=== PATIENT | male | born 1980 | race Hispanic/Latino ===

== ENCOUNTER → 2017-11-23 08:41 | Outpatient (CLI) | payer BC, SELFPAY ==
[2017-11-25 22:32] LABS: Carbamazepine Tegretol Level 12.2 mg/L (4.0-12.0)
[2017-11-26 15:07] LABS: Gabapentin 9.9 mcg/mL
[2017-11-28 09:06] LABS: Topiramate 5.6 mcg/mL
== END ==
PROVIDERS: Visit Provider Physician Assistant
DX: R56.9 Unspecified convulsions (principal)
CPT/HCPCS: 36415; 80156; 80201; 80299

== ENCOUNTER → 2018-11-21 15:57 | Outpatient (CLI) | payer OTHER, MEDICAID, SELFPAY ==
--- NOTE | 2018-11-21 15:59 | DI.RAD.S_ITS ---
PROCEDURE: XR CHEST 2V INDICATIONS: Perisistent cough >1 month TECHNIQUE: 2 views of the chest were acquired. COMPARISON: [facility], , CHEST 2 VIEW, 08/02/2012, 16:04. FINDINGS: Surgical changes and devices: Pulse generator noted Lungs and pleura: Lungs are clear. No pleural effusions or pneumothorax. Mediastinum: Mediastinal contours are normal. Heart size is normal. Bones and chest wall: No suspicious bony abnormalities. Soft tissues appear unremarkable. IMPRESSION: No acute disease. Dictated by: Justice Peñaloza M.D. on 11/21/2018 at 16:46 Approved by: Justice Peñaloza M.D. on 11/21/2018 at 16:47
== END ==
PROVIDERS: PCP Family Medicine; Visit Provider Family Medicine
DX: R05 Cough (principal)
CPT/HCPCS: 71046

== ENCOUNTER → 2019-01-11 10:12 | Outpatient (CLI) | payer OTHER, MEDICAID, SELFPAY ==
--- NOTE | 2019-01-11 10:14 | DI.RAD.S_ITS ---
PROCEDURE: XR RIBS RT MIN 3V W CXR 1V INDICATIONS: R rib pain s/p trauma TECHNIQUE: 2 views of the right ribs were acquired, along with a single view chest. COMPARISON: [facility], , XR CHEST 2V, 11/21/2018, 15:58. FINDINGS: Surgical changes and devices: There is a electronic device projecting to the left anterior thorax. Bones and chest wall: No fractures or dislocations. No suspicious bony lesions. Overlying soft tissues appear unremarkable. Lungs and pleura: No pleural effusions or pneumothorax. Lungs appear clear. Mediastinum: Mediastinal contours appear normal. Heart size is normal. IMPRESSION: No displaced rib fractures identified. Dictated by: Jonathan Srinivasan M.D. on 01/11/2019 at 17:01 Approved by: Jonathan Srinivasan M.D. on 01/11/2019 at 17:03
== END ==
PROVIDERS: PCP Family Medicine; Visit Provider Nurse Practitioner
DX: R07.81 Pleurodynia (principal)
CPT/HCPCS: 71101

== ENCOUNTER → 2019-06-25 16:00 | Outpatient (CLI) | payer OTHER, MEDICAID, SELFPAY ==
[2019-06-26 08:48] LABS: Carbamazepine Tegretol Level 12.6 ug/mL (4.0-12.0)
[2019-06-27 07:38] LABS: Topiramate 9.8 ug/mL (2.0-25.0)
[2019-06-27 11:38] LABS: Gabapentin 14.4 ug/mL (4.0-16.0)
== END ==
PROVIDERS: PCP Family Medicine; Referring Provider Family Medicine; Visit Provider Psychiatry & Neurology Neurology
DX: Z51.81 Encounter for therapeutic drug level monitoring (principal)
CPT/HCPCS: 36415; 80156; 80171; 80201